=== PATIENT | male | born 1935 | race Caucasian/White ===

== ENCOUNTER 2024-01-20 08:46 | Emergency (ER) | payer MEDICARE, SELFPAY ==
[2024-01-20 08:46] VITALS: BMI 27.4
[2024-01-20 08:48] VITALS: BP 149/89
--- NOTE | 2024-01-20 09:07 | ED.GENMED ---
History of Present Illness
General
Chief Complaint: Musculo-Skeletal Complaint
Source: patient
Exam Limitations: none
Time Seen by Provider: 01/20/24 08:53
Nursing documentation reviewed up to this point in time: agreed with
Travel History
Have you had any contact with someone who has COVID-19?: No
Do you have any symptoms of coronavirus? Fever > 100 degrees, chills, cough, shortness of breath, sore throat, loss of taste or smell, muscle aches, or headache?: No
History of Present Illness
History of Present Illness:
88-year-old male with a past medical history of hyperlipidemia, CAD status post stents, permanent pacemaker, atrial fibrillation on Pradaxa who presents to the emergency department with his daughter for evaluation after fall. Patient reports on
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 He says he landed on his bottom and hit his left wrist on the ground. He says he did not
hit his head. Since then he says that he has had some mild pain in his left wrist and left buttock. He has had some bruising in these areas. Daughter brought him to the emergency room today to be assessed for these injuries. He denies any
headache. Denies any neck pain. Denies any back pain. Denies any chest or abdominal pain. He has not had shortness of breath. He complains of left wrist pain but denies any pain in the left elbow or shoulder. Complains of left buttock pain but
no significant pain in the left knee or hip. He is on Pradaxa as above. He sees Dr. Santana for cardiology.
Past History
Past History
ED Past Medical History: Arrthythmia (Atrial fibrillation), CAD, HTN and Hypercholesterolemia
ED Past Surgical History: Cardiac (PTCA with stent 2007, pacemaker, PTCA with stent 2010) and Orthopedic (Bilateral rotator cuff repair.)
Social History
Tobacco: Non-smoker
Alcohol: Daily
Personal:
Living: with family
Employment: Retired
Family History
Family History: CAD
Review of Systems
Review of Systems
All Other Systems: ROS reviewed and negative except as documented in HPI and ROS
Constitutional: Denies fever
Respiratory: Denies cough or trouble breathing
Cardiac: Reports syncope; Denies chest pain or palpitations
ABD/GI: Denies abdominal pain, nausea, vomiting or diarrhea
: Denies flank pain
Musculoskeletal: Reports joint pain (Left buttock pain, left wrist pain); Denies neck pain or back pain
Neurological: Denies headache, weakness or numbness
Phy Exam
Physical Exam
Physical Exam:
General: Awake, alert, oriented x3; no acute distress
Head: Normocephalic, atraumatic
Eyes: Conjunctiva normal, EOMI
Throat: Airway intact, handling secretions
Neck: Trachea midline, no cervical spine tenderness
Back: No signs of trauma to the back or flank and no tenderness in the thoracic or lumbar spine, no tenderness in the posterior ribs
Lungs: Clear to auscultation bilaterally, no wheezing, rales, rhonchi
Heart: Regular rate and rhythm, no murmurs, gallops, or rubs; permanent pacemaker left chest
Abd: Soft, non distended, nontender
Neuro: Cranial nerves grossly intact, speech fluid, motor and sensory function intact in all extremities
Skin: Patient has some bruising to the ventral aspect of the left wrist also has some bruising to the left buttock
Extremities: Patient has bruising to the ventral aspect of the left wrist and some very mild tenderness in this area�he has no snuffbox tenderness, no dorsal tenderness of the wrist, no tenderness of the hand; he is able to move the left wrist
through full active range of motion with minimal discomfort; he has no tenderness in the left elbow or shoulder and allows for full range of motion without discomfort in these joints; no signs of trauma to the right upper extremity and moving
comfortably //on exam of his left hip he has some ecchymosis on the left buttock approximately 5 cm circumference and roughly circular, area is soft to the touch not firm and only mildly tender; he is able to move left hip through good active range
of motion with minimal discomfort and he has no pain on range of motion of the left knee; his right lower extremity is atraumatic and he is moving a comfortable; he has good pulses in all extremities
Scores
Heart Failure Risk
Heart Failure Risk Score: Not Applicable
Heart Score for Chest Pain Patients
STEMI patient?: Not applicable
Withdrawal Assessment of Alcohol
Withdrawal Assessment Completed?: Not applicable
Course
Orders/Labs/Results
Orders:
Orders
01/20/24 08:53
CR Pelvis Comp Min 3 Views Urgent
Comment:
Reason For Exam: fall onto buttock with pelvic pain
01/20/24 08:54
Electrocardiogram (*1) Urgent
Reason for Study: Vertigo / Dizzy
EKG- Treatment ONCE
Interrogate Pacemaker- Treatment ONCE
01/20/24 09:28
CR Wrist - Left Min 3 Views Urgent
Comment:
Reason For Exam: fall with wrist injury
01/20/24 09:36
Complete Blood Count/With Diff Urgent
Comprehensive Metabolic Panel Urgent
Abnormal Lab Results
01/20/24
09:36
RBC 4.55 L 10^6/uL
(4.70-6.10)
MCH 31.4 H pg
(27.0-31.0)
Absolute Lymphs (auto) 1.1 L 10^3/uL
(1.2-3.4)
Neutrophils % 77.6 H %
(42.2-75.2)
Lymphocytes % 13.7 L %
(20.5-51.1)
Glucose 107 H mg/dl
(70-99)
01/20/24 09:36
01/20/24 09:36
Vital Signs
Initial and Last Documented VS:
Initial Vital Signs
Temp Pulse Resp BP Pulse Ox
36.6 C 91 20 149/89 99
01/20/24 08:48 01/20/24 08:48 01/20/24 08:48 01/20/24 08:48 01/20/24 08:48
Last Documented Vital Signs
Temp Pulse Resp BP Pulse Ox
36.6 C 68 20 124/79 97
01/20/24 08:48 01/20/24 10:45 01/20/24 10:45 01/20/24 10:00 01/20/24 10:45
MDM/Problems Addressed
Differential Diagnosis Includes:
Syncope: Vasovagal episode, postural/positional syncope, symptomatic anemia, cardiac dysrhythmia
Buttock pain: Contusion, hematoma, pelvic fracture
Wrist pain: Contusion, sprain, fracture
MDM/Problems Addressed:
88-year-old male presents for evaluation after fall�it seems like he had a syncopal event when bending over on Thursday, landing on his buttock and injured his wrist. No head trauma. He is on Pradaxa. Vital signs significant for hypertension
otherwise unremarkable. Exam as above. Plan to place an IV check labs including CBC and CMP. Will check an EKG and interrogate patient's pacemaker. Check x-ray of the wrist and pelvis. Will monitor closely reassess at the above.
Labs reviewed: CBC and CMP unremarkable. EKG shows A-fib with occasional paced complexes no ischemia. Interrogated patient's [employer] device�no events noted, functioning appropriately. X-rays of the ribs and pelvis reviewed by me show no acute
fractures. Suspect that this was likely a postural syncopal event as it occurred with bending over and standing back up. Suspect musculoskeletal complaints likely due to contusions. Stable for discharge can follow-up as an outpatient with PCP.
Patient very happy with this plan. Spoke about return precautions all questions answered.
Chronic conditions affecting care:
History of atrial fibrillation on Pradaxa which complicates his fall
Acute Exacerbation and/or Progression of Chronic Illness:
Acutely hypertensive with no signs or symptoms of hypertensive emergency� indication for emergent antihypertensive therapy at present
Acute Exacerbation and/or Progression of Chronic Illness: HTN
*Radiology
Radiology exam reviewed: preliminary read by ED provider and radiology read reviewed
*Pulse Oximetry
Patient hypoxic: no
*Critical Care Note
Total Time (30-74mins, 75-104mins- exclusive of procedures): Not Applicable
Data Reviewed
Source: patient and family (Daughter)
Further Testing Considered But Not Given:
Considered CT head but no reported trauma, no signs of head trauma, no headache and 3 days removed from fall�no indication for emergent head imaging
ED Attending Note
-
Portions of this chart may have been created with voice recognition software.� Occasional wrong word or��sound alike� substitutions may have occurred due to the inherent limitations of voice recognition software.
Discharge Plan
Departure
Patient Disposition: Home (Routine Discharge)
Date of Disposition: 01/20/24
Time of Disposition: 10:58
Patient with high blood pressure during this ER visit?: Yes
Discharge Problem:
Syncope, Contusion of hip, left, Contusion of left wrist
Instructions: Contusion (DC), Syncope (Fainting) (DC)
Prescriptions:
No Action
atorvastatin 80 MG tablet
80 mg PO HS
atenolol 25 MG tablet
25 mg PO HS
aspirin [Lo-Dose Aspirin] 81 MG tablet,delayed release (DR/EC)
81 mg PO Daily
acetaminophen [Tylenol Arthritis] 650 MG tablet extended release
2 tab PO DAILY
zolpidem 5 MG tablet
5 mg PO HS
cephalexin 500 MG capsule
500 mg PO Q8H Qty: 3 0RF
Rx Instructions:
First dose due at 7pm today
dabigatran etexilate [Pradaxa] 150 MG capsule
150 mg PO BID Qty: 0 0RF
Rx Instructions:
OK to resume tonight, Mon 2/8 at usual time
Referrals:
Rivera Gonzáles MD [Family Provider] - Call in 1-3 days for appt
Activity Restrictions/Additional Instructions:
Thank you for visiting the Emergency Department at [facility].
1. Please schedule a follow up appointment as directed. Call first thing tomorrow morning to make an appointment.
2. If indicated, please take your medications as instructed and indicated on discharge paperwork.
3. If any of your symptoms do not improve, or persist, or become more severe within 6-12 hours, please return to the emergency department for further care.
4. Please return to the emergency department if you develop a headache, neck pain/stiffness, fever greater than 100.4F, chest pain, shortness of breath, persistent nausea, vomiting, slurred speech, difficulty walking, numbness/tingling, weakness,
signs of infection or any other symptoms that are worrisome to you.
Please call [phone] if you have any questions.
Interventions
Interventions:
*Risk Screen - Suicide Last Done: 01/20/24 09:46
*General Assessment Last Done: 01/20/24 09:46
*Neglect/Abuse Screening Last Done: 01/20/24 09:46
ED- Fall Risk Assessment Last Done: 01/20/24 09:46
*ED COVID-19 Vaccine History Last Done: 01/20/24 09:46
ED-Musculoskeletal Assessment Last Done: 01/20/24 09:46
Discharge Date and Time
Print Language: PASHTO
[2024-01-20 09:40] VITALS: BP 150/74
[2024-01-20 10:00] VITALS: BP 124/79
[2024-01-20 10:01] LABS: % Basophils 0.3 % (0-2); % Eosinophils 1.1 % (0-6); % Immature Granulocytes 0.1 % (0-0.5); % Lymphocytes 13.7 % (20.5-51.1); % Monocytes 7.2 % (1.7-9.3); % Neutrophils 77.6 % (42.2-75.2); Absolute Eosinophils 0.1 10^3/uL (0-0.7); Absolute Lymphocytes 1.1 10^3/uL (1.2-3.4); Absolute Monocytes 0.6 10^3/uL (0.1-0.6); Absolute Neutrophils 6.1 10^3/uL (1.4-6.5); Hemoglobin 14.3 g/dL (13.0-18.0); Mean Corpuscular Hgb 31.4 pg (27.0-31.0); Mean Corpuscular Volume 92.3 fL (80.0-94.0); Mean Platelet Volume 9.2 fL (7.4-10.4); Nucleated Red Blood Cells % 0 % (-); Platelet Count 181 10^3/uL (130-400); Red Blood Cell Count 4.55 10^6/uL (4.70-6.10); Red Cell Dist. Width 13.8 % (11.5-14.5); White Blood Cell Count 7.8 10^3/uL (4.8-10.8)
[2024-01-20 10:36] LABS: Alkaline Phosphatase 82 U/L (38-126); Blood Urea Nitrogen 16 mg/dl (9-20); Carbon Dioxide 25 mmol/L (22-30); Chloride 106 mmol/L (98-107); Estimated Creatinine Clearance 76 ml/min; Glucose 107 mg/dl (70-99); Potassium 4.2 mmol/L (3.5-5.1); Sodium 138 mmol/L (135-145); eGFR > 60.00
[2024-01-20 10:37] LABS: ALT (SGPT) 17 U/L (0-50); AST (SGOT) 28 U/L (17-59); Albumin 4.4 g/dl (3.5-5.0); Calcium 10.2 mg/dl (8.4-10.2); Total Bilirubin 1.3 mg/dl (0.2-1.3); Total Protein 7.2 g/dl (6.3-8.2)
[2024-01-20 11:00] VITALS: BP 169/89
== END 2024-01-20 11:20 | disposition home or self-care (01) ==
LOC: EMR 08:46
PROVIDERS: EMERGENCY PHYSICIAN Emergency Medicine; FAMILY PHYSICIAN Family Medicine
DX: R55 Syncope and collapse (principal); S60.212A Contusion of left wrist, initial encounter; S70.02XA Contusion of left hip, initial encounter; W18.39XA Other fall on same level, initial encounter; R10.2 Pelvic and perineal pain; I48.91 Unspecified atrial fibrillation; I10 Essential (primary) hypertension; E78.00 Pure hypercholesterolemia, unspecified; I25.10 Atherosclerotic heart disease of native coronary artery without angina pectoris; Z95.0 Presence of cardiac pacemaker; Z95.5 Presence of coronary angioplasty implant and graft; Z79.01 Long term (current) use of anticoagulants; Z79.82 Long term (current) use of aspirin; Z88.5 Allergy status to narcotic agent; Z91.048 Other nonmedicinal substance allergy status
CPT/HCPCS: 99285; 93288; 72190; 73110; 80053; 85025; 93005

== ENCOUNTER → 2025-01-05 13:14 | Outpatient (REF) | payer MEDICARE, SELFPAY | LOC: HWRCS 13:14 | PROVIDERS: ATTENDING PHYSICIAN Student in an Organized Health Care Education/Training Program; FAMILY PHYSICIAN Family Medicine | DX: R01.1 Cardiac murmur, unspecified (principal) | CPT/HCPCS: 93306 ==

== ENCOUNTER → 2025-07-11 11:16 | Outpatient (REF) | payer MEDICARE, SELFPAY | LOC: HWRCS 11:16 | PROVIDERS: ATTENDING PHYSICIAN Student in an Organized Health Care Education/Training Program; FAMILY PHYSICIAN Family Medicine | DX: I25.10 Atherosclerotic heart disease of native coronary artery without angina pectoris (principal) | CPT/HCPCS: 93306 ==